=== PATIENT | male | born 1990 | race Caucasian/White ===

== ENCOUNTER 2017-01-03 12:57 | Emergency (ER) | payer OTHER ==
[~2017-01-03] VITALS: Ht 167.6 cm; Wt 81.6 kg
[2017-01-03 12:58] VITALS: BP 163/96
[2017-01-03] MEDS ORDERED: LIDOCAINE 2% MDV 20 ML VIAL As Ordered ONE (13:28)
[2017-01-03] MEDS ORDERED: LIDOCAINE 2% MDV 20 ML VIAL SC ONE (13:30)
== END 2017-01-03 14:14 | disposition home or self-care (01) ==
LOC: M ED 14:01
DX: S61.412A Laceration without foreign body of left hand, initial encounter (principal); S00.93XA Contusion of unspecified part of head, initial encounter; W20.8XXA Other cause of strike by thrown, projected or falling object, initial encounter; Y92.410 Unspecified street and highway as the place of occurrence of the external cause; Y93.89 Activity, other specified; Y99.9 Unspecified external cause status